=== PATIENT | male | born 1965 | race Caucasian/White ===

== ENCOUNTER 2024-03-11 12:55 | Emergency (ER) | payer OTHER, SELFPAY ==
[2024-03-11 12:56] VITALS: BP 137/82
[2024-03-11 13:04] VITALS: BMI 34.3
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
[2024-03-11 13:15] VITALS: BP 136/82
[2024-03-11 13:26] LABS: % Basophils 0.5 % (0-2); % Eosinophils 0.8 % (0-6); % Immature Granulocytes 0.4 % (0-0.5); % Lymphocytes 21.1 % (20.5-51.1); % Monocytes 5.3 % (1.7-9.3); % Neutrophils 71.9 % (42.2-75.2); Absolute Basophils 0.1 10^3/uL (0-0.2); Absolute Eosinophils 0.1 10^3/uL (0-0.7); Absolute Monocytes 0.5 10^3/uL (0.1-0.6); Absolute Neutrophils 6.9 10^3/uL (1.4-6.5); Hematocrit 42.4 % (39.0-52.0); Hemoglobin 14.6 g/dL (13.0-18.0); Mean Corp Hgb Conc. 34.4 g/dL (33.0-37.0); Mean Corpuscular Hgb 29.9 pg (27.0-31.0); Mean Corpuscular Volume 86.7 fL (80.0-94.0); Nucleated Red Blood Cells % 0 % (-); Platelet Count 107 10^3/uL (130-400); Red Blood Cell Count 4.89 10^6/uL (4.70-6.10); Red Cell Dist. Width 13.1 % (11.5-14.5); White Blood Cell Count 9.6 10^3/uL (4.8-10.8)
[2024-03-11 13:41] LABS: Blood Urea Nitrogen 15 mg/dl (9-20); Calcium 9.5 mg/dl (8.4-10.2); Carbon Dioxide 27 mmol/L (22-30); Chloride 103 mmol/L (98-107); Estimated Creatinine Clearance 93 ml/min; Glucose 176 mg/dl (70-99); Sodium 139 mmol/L (135-145); eGFR > 60.00
[2024-03-11 14:15] VITALS: BP 145/80
[2024-03-11 15:00] VITALS: BP 148/75
== END 2024-03-11 15:15 | disposition home or self-care (01) ==
LOC: EMR 12:55
PROVIDERS: Physician Assistant; EMERGENCY PHYSICIAN Emergency Medicine; FAMILY PHYSICIAN Nurse Practitioner Family
DX: S52.611A Displaced fracture of right ulna styloid process, initial encounter for closed fracture (principal); S00.81XA Abrasion of other part of head, initial encounter; V29.91XA Electric (assisted) bicycle rider (driver) (passenger) injured in unspecified traffic accident, initial encounter; F17.200 Nicotine dependence, unspecified, uncomplicated
CPT/HCPCS: 99285; 29125; 70450; 71260; 72125; 73110; 74177; 80048; 85025; Q9967

== ENCOUNTER → 2024-03-12 17:34 | Outpatient (REF) | payer OTHER, SELFPAY | LOC: RAD 17:34 | PROVIDERS: ATTENDING PHYSICIAN Nurse Practitioner Family | DX: R07.81 Pleurodynia (principal) | CPT/HCPCS: 71101 ==